=== PATIENT | male | born 1995 | race Two or more races ===

== ENCOUNTER 2023-05-16 18:16 | Emergency (ER) | payer SELFPAY ==
[~2023-05-16] VITALS: Ht 165.1 cm; Wt 70.1 kg
[2023-05-16 19:37] VITALS: BP 125/69; PULSE 100; RESP 16; TEMP 97.6; O2SAT 97
[2023-05-16] MEDS ORDERED: LIDO5PAD8 EX (21:08)
[2023-05-16] MEDS ORDERED: CYCL-839 PO (21:08)
[2023-05-16] MEDS ORDERED: IBUP1TAB5 PO (21:08)
[2023-05-16] MEDS ORDERED: KETOROLAC TROMETH 60MG/2ML VIAL IM ONE (21:15)
== END 2023-05-16 22:38 | disposition home or self-care (01) ==
LOC: ER 18:16
DX: S39.012A Strain of muscle, fascia and tendon of lower back, initial encounter (principal); Z79.899 Other long term (current) drug therapy; X50.1XXA Overexertion from prolonged static or awkward postures, initial encounter; Y93.89 Activity, other specified; Y92.89 Other specified places as the place of occurrence of the external cause; Y99.8 Other external cause status
CPT/HCPCS: 72100; 96372; 99283; J1885

== ENCOUNTER 2023-12-22 08:57 | Emergency (ER) | payer MEDICAID, OTHER ==
[~2023-12-22] VITALS: Ht 165.1 cm; Wt 69.2 kg
[~2023-12-22 08:57] MED LIST: CYCL-839 PO; IBUP1TAB5 PO; LIDO5PAD12 EX
[2023-12-22 09:35] VITALS: BP 132/68; PULSE 86; RESP 18; TEMP 98.6; O2SAT 98
[2023-12-22] MEDS: cefTRIAXone SOD 1,000 MG VL IM ONE (09:45)
[2023-12-22] MEDS ORDERED: LIDO2SOL26 MT (10:01)
[2023-12-22] MEDS ORDERED: PENI500T2 PO (10:01)
== END 2023-12-22 10:07 | disposition home or self-care (01) ==
LOC: ER 08:57
DX: J02.9 Acute pharyngitis, unspecified (principal); Z79.899 Other long term (current) drug therapy
CPT/HCPCS: 96372; 99283; J0696

== ENCOUNTER 2024-02-16 22:46 | Emergency (ER) | payer MEDICAID ==
[~2024-02-16] VITALS: Ht 165.1 cm; Wt 65.6 kg
[~2024-02-16 22:46] MED LIST changes: +LIDO2SOL26 MT; +PENI500T2 PO
[2024-02-16 22:49] VITALS: BP 113/69; PULSE 79; RESP 18; TEMP 98.2; O2SAT 94
[2024-02-16 23:37] LABS: Rapid Strep A Screen-Throat Negative
[2024-02-17] MEDS ORDERED: AUG875T PO (01:06)
[2024-02-17] MEDS: DexAMETHasone SOD PHOS 10MG/1ML VIAL INJ IM ONE (01:19)
== END 2024-02-17 01:27 | disposition home or self-care (01) ==
LOC: ER 22:46
DX: J02.9 Acute pharyngitis, unspecified (principal); Z79.899 Other long term (current) drug therapy
CPT/HCPCS: 87070; 87880; 96372; 99283; J1100

== ENCOUNTER 2024-05-07 21:13 | Emergency (ER) | payer MEDICAID ==
[~2024-05-07] VITALS: Ht 165.1 cm; Wt 70.9 kg
[~2024-05-07 21:13] MED LIST changes: +AUG875T PO
[2024-05-07 22:28] VITALS: BP 125/83; PULSE 84; RESP 18; TEMP 98.3; O2SAT 98
[2024-05-07] MEDS ORDERED: IBUP-1456 PO (22:54)
[2024-05-07] MEDS ORDERED: CYCL-837 PO (22:54)
--- NOTE | 2024-05-07 22:54 | ED.PDOC ---
Back pain HPI HPI Comments 29 YEAR OLD MALE PRESENTS TO ER WITH COMPLAINTS OF BACK PAIN X1 DAY. PATIENT REPORTS HE STARTED EXPERIENCING DIFFUSE LOWER LUMBAR BACK PAIN THIS EVENING AFTER HE PICKED UP HIS APPROXIMATELY 50 LB NIECE. HE RATES HIS CURRENT PAIN A 10/10 DIFFUSE TO LOWER LUMBAR SPINE WITHOUT RADIATION. DENIES USE OF MEDICATIO NS FOR CURRENT SYMPTOMS. PATIENT STATES HE HAS HAD SIMILAR SYMPTOMS IN THE PAST RELATED TO A "BACK STRAIN" AND REPORTS HIS PAIN IS WORSE WITH MOVEMENT AND BETTER WITH REST. DENIES FEVER, BODY ACHES, CHILLS, NAUSEA/VOMITING, NUMBNESS/TINGLING, SHORTNESS OF BREATH, CHEST PAIN, TRAUMA/FALLS, ABDOMINAL/PELVIC PAIN, CHANGES IN URINATION/BM OR ANY FURTHER SYMPTOMS/COMPLAINTS Chief Complaint: Back Pain Time Seen by MD: 21:38 Primary Care Provider: UNKNOWN Reviewed Notes: Nurses Notes, Medications, Allergies Allergies: Coded Allergies: NO KNOWN ALLERGIES (Unverified , 05/16/23) Home Meds Active Scripts Cyclobenzaprine Hcl (Cyclobenzaprine Hcl) 5 Mg Tab, 1 TAB PO QHSP PRN, #14 TAB 0 Refills Prov:KORINA MORILLO 05/07/24 Ibuprofen (Ibuprofen) 800 Mg Tab, 1 TAB PO TID PRN, #30 TAB 0 Refills Prov:KORINA MORILLO 05/07/24 Amoxicillin & Pot Clavulanate (AUGMENTIN TABLET) 875 Mg Tb, 875 MG PO BID for 7 Days, #14 TAB Prov:STEPHENIE GILLIS 02/17/24 Lidocaine HCl (Mouth-Throat) (Lidocaine HCl Viscous) 2 % Kaitlynn, 5 ML MT TID, #100 ML Prov:PAULINO VILLASEÑOR 12/22/23 Penicillin V Potassium (Veetids) 500 Mg Tab, 1 TAB PO QID, #28 TAB Prov:PAULINO VILLASEÑOR 12/22/23 Cyclobenzaprine Hcl (Cyclobenzaprine Hcl) 10 Mg Tab, 10 MG PO TID, #12 TAB 0 Refills Prov:LEONIDAS FISH [facility] 05/16/23 Ibuprofen Micronized (Ibuprofen) 600 Mg Tab, 600 MG PO Q8HPRN PRN, #30 TAB 0 Refills Prov:LEONIDAS FISH [facility] 05/16/23 Lidocaine (Lidocaine Patch 5%) 5 % Pad, 1 APPLIC EX DAILY PRN, #30 PATCH 0 Refills Prov:LEONIDAS FISH [employer] 05/16/23 Information Source: Patient Mode of Arrival: Wheelchair Past Medical History PAST MEDICAL HISTORY: Denies Surgical History: Denies all surgeries Family History Family History: Unknown Social History Smoker: Non-Smoker Alcohol: Denies ETOH Use Drugs: Denies Drug Use Lives In: Home Constitutional: denies: chills, diaphoresis, fatigue, fever, malaise, sweats, weakness, others EENTM: denies: blurred vision, double vision, ear bleeding, ear discharge, ear drainage, ear pain, ear ringing, eye pain, eye redness, hearing loss, mouth pain, mouth swelling, nasal discharge, nose bleeding, nose congestion, nose pain, photophobia, tearing, throat pain, throat swelling, voice changes, others Respiratory: denies: cough, hemoptysis, orthopnea, SOB at rest, shortness of breath, SOB with excertion, stridor, wheezing, others Cardiovascular: denies: chest pain, dizzy spells, diaphoresis, Dyspnea on exertion, edema, irregular heart beat, left arm pain, lightheadedness, palpitations, PND, syncope, others Gastrointestinal: denies: abdomen distended, abdominal pain, blood streaked bowels, constipated, diarrhea, dysphagia, difficulty swallowing, hematemesis, melena, nausea, poor appetite, poor fluid intake, rectal bleeding, rectal pain, vomiting, others Genitourinary: denies: burning, dysuria, flank pain, frequency, hematuria, incontinence, penile discharge, penile sore, pain, testicle pain, testicle swelling, urgency, others Neurological: denies: dizziness, fainting, headache, left sided numbness, left sided weakness, numbness, paresthesia, pre-existing deficit, right sided numbness, right sided weakness, seizure, speech problems, tingling, tremors, weakness, others Musculoskeletal: reports: others ( STATED IN HPI) Integumetry: denies: bruises, change in color, change in hair/nails, dryness, laceration, lesions, lumps, rash, wounds, others Allergic/Immunocompromised: denies: Difficulty Healing, Frequent Infections, Hives, Itching, others Hematologic/Lymphatic: denies: anemia, blood clots, easy bleeding, easy bruising, swollen glands, others Endocrine: denies: excessive hunger, excessive sweating, excessive thirst, excessive urination, flushing, intolerance to cold, intolerance to heat, unexplained weight gain, unexplained weight loss, others Psychiatric: denies: anxiety, bipolar disorder, depression, hopeless, panic disorder, schizophrenia, sleepless, suicidal, others Physical Exam General Appearance: No Apparent Distress HEENT: PERRL/EOMI Neck: Full Range of Motion, Non-Tender, Normal Respiratory: Chest Non-Tender, Lungs Clear, No Accessory Muscle Use, No Respiratory Distress, Normal Breath Sounds Cardiovascular: No Murmur, No Gallop, Regular Rate/Rhythm Breast Exam: Deferred Gastrointestinal: No Organomegaly, Non Tender, No Pulsatile Mass, Normal Bowel Sounds, Soft Genitalia: Deferred Pelvic: Deferred Rectal: Deferred Extremities: No calf tenderness, Normal capillary refill, Normal range of motion Musculoskeletal : Extremity Location: Back (Slight TTP diffuse to bilateral lower lumbar paraspinals noted. No skin changes appreciated. Gait slowed due to pain localized to bilateral lower lumbar paraspinals) Neurologic: Alert, No Motor Deficits, Normal Affect, Normal Mood, No Sensory De ficits Cerebellar Function: Normal Reflexes: Normal Skin: Dry, Normal Color, Warm Peripheral Pulses: 2+ femoral (R), 2+ femoral (L), 2+ dorsalis pedis (R), 2+ dorsalis pedis (L), 2+ Radial (R), 2+ Radial (L), 2+ Brachial (R), 2+ Brachial (L) Lymphatic: No Adenopathy Was a procedure done? Was a procedure done?: No Sedation Sedation?: No Back Pain Differential Dx Differential Diagnosis: AAA, Fracture, Urinary Tract Infection, Urolithiasis X-Ray, Labs, Meds, VS Vital Signs Date Time Temp Pulse Resp B/P (MAP) Pulse Ox O2 Delivery O2 Flow Rate FiO2 05/07/24 22:28 98.3 84 18 125/83 (97) 98 98.3 05/07/24 22:28 84 18 98 Room Air 05/07/24 21:35 98.3 84 18 125/83 (97) 98 Toradol 60 mg IM ordered Patient neurovascularly intact and reported improvement in symptoms prior to discharge Advised on rest/no strenuous activity Advised to follow up with PCP in 1-2 days Patient verbalized understanding and agreeable with current plan of care Advised to return to ER immediately if symptoms worsen Time of 1ST Reevaluation: 22:24 Reevaluation 1ST: N/A Patient Education/Counseling: Diagnosis, Treatment, Prognosis, Need For Follow Up Family Education/Counseling: No Family Present Departure 1 Departure Time of Disposition: 22:52 Impression: Primary Impression: Lumbar strain Qualified Codes: S39.012A - Strain of muscle, fascia and tendon of lower back, initial encounter Disposition: HOME / SELF CARE / HOMELESS Condition: Stable e-Prescriptions Cyclobenzaprine Hcl (Cyclobenzaprine Hcl) 5 Mg Tab 1 TAB PO QHSP PRN, #14 TAB 0 Refills Prov: KORINA MORILLO 05/07/24 Ibuprofen (Ibuprofen) 800 Mg Tab 1 TAB PO TID PRN, #30 TAB 0 Refills Prov: KORINA MORILLO 05/07/24 Discharged With: Friend Critical Care Note Critical Care Time?: No Stability Stability form required: No Heart Score Heart Score: Heart Score Response (Comments) Value History N/A 0 EKG N/A 0 Age N/A 0 Risk Factors N/A 0 Troponin N/A 0 Total 0 KORINA MORILLO May 07, 2024 22:54
[2024-05-07] MEDS: KETOROLAC TROMETH 60MG/2ML VIAL IM ONE (23:14)
== END 2024-05-07 23:52 | disposition home or self-care (01) ==
LOC: ER 21:13
DX: S39.012A Strain of muscle, fascia and tendon of lower back, initial encounter (principal); Z79.899 Other long term (current) drug therapy; X58.XXXA Exposure to other specified factors, initial encounter; Y93.89 Activity, other specified; Y92.89 Other specified places as the place of occurrence of the external cause; Y99.8 Other external cause status
CPT/HCPCS: 96372; 99283; J1885

== ENCOUNTER 2024-05-11 18:40 | Emergency (ER) | payer MEDICAID ==
[~2024-05-11] VITALS: Ht 165.1 cm; Wt 68.7 kg
[~2024-05-11 18:40] MED LIST changes: +CYCL-837 PO; +IBUP-1456 PO
--- NOTE | 2024-05-11 21:50 | DVH ---
CLINICAL INDICATION: injury/pain TECHNIQUE: 3 radiographic views of the lumbar spine were obtained. Comparison: XY LUMBAR SPINE 3 VIEW on DOS: 05/16/23 FINDINGS/IMPRESSION: There is no evidence of acute fracture or dislocation. The visualized joint space is well maintained. Straightening of the normal lumbar lordotic curve is noted this is unchanged from May 16, 2023 There is no radiopaque foreign body.
[2024-05-11] MEDS: KETOROLAC TROMETH 60MG/2ML VIAL IM ONE (22:00)
[2024-05-11] MEDS: DexAMETHasone SOD PHOS 10MG/1ML VIAL INJ IM ONE (22:01)
[2024-05-11 22:06] VITALS: BP 117/70; PULSE 73; RESP 17; TEMP 98; O2SAT 98
--- NOTE | 2024-05-11 22:06 | ED.PDOC ---
Back pain HPI HPI Comments This is a 29-year-old male presents to the ED chief complaint low back pain. Here 2 days ago was prescribed muscle relaxer and ibuprofen no imaging was done he states pain continues medications. He states he injured it a several days ago twisted his back ever since he is having bilateral low back pain left greater than right with radiation into his left buttock 8/10 on pain scale sharp shooting type pain.. He denies any radiculopathy, Numbness or weakness, Saddle anesthesia. loss of bladder control. Chief Complaint: Back Pain Time Seen by MD: 18:49 Primary Care Provider: UNKNOWN Reviewed Notes: Nurses Notes, Medications, Allergies Allergies: Coded Allergies: NO KNOWN ALLERGIES (Unverified , 05/16/23) Home Meds Active Scripts Methylprednisolone (Medrol Dosepak) 4 Mg Victor Manuel, 4 MG PO UD for 6 Days, #21 TAB UAD Prov:STEPHENIE GILLIS [employer] 05/11/24 Cyclobenzaprine Hcl (Cyclobenzaprine Hcl) 5 Mg Tab, 1 TAB PO QHSP PRN, #14 TAB 0 Refills Prov:KORINA MORILLO 05/07/24 Ibuprofen (Ibuprofen) 800 Mg Tab, 1 TAB PO TID PRN, #30 TAB 0 Refills Prov:KORINA MORILLO 05/07/24 Amoxicillin & Pot Clavulanate (AUGMENTIN TABLET) 875 Mg Tb, 875 MG PO BID for 7 Days, #14 TAB Prov:STEPHENIE GILLIS [facility] 02/17/24 Lidocaine HCl (Mouth-Throat) (Lidocaine HCl Viscous) 2 % Kaitlynn, 5 ML MT TID, #100 ML Prov:PAULINO VILLASEÑOR 12/22/23 Penicillin V Potassium (Veetids) 500 Mg Tab, 1 TAB PO QID, #28 TAB Prov:PAULINO VILLASEÑOR 12/22/23 Cyclobenzaprine Hcl (Cyclobenzaprine Hcl) 10 Mg Tab, 10 MG PO TID, #12 TAB 0 Refills Prov:LEONIDAS FISH [facility] 05/16/23 Ibuprofen Micronized (Ibuprofen) 600 Mg Tab, 600 MG PO Q8HPRN PRN, #30 TAB 0 Refills Prov:LEONIDAS FISH [facility] 05/16/23 Lidocaine (Lidocaine Patch 5%) 5 % Pad, 1 APPLIC EX DAILY PRN, #30 PATCH 0 Refills Prov:LEONIDAS FISH [facility] 05/16/23 Information Source: Patient Mode of Arrival: Wheelchair Past Medical History PAST MEDICAL HISTORY: Denies Surgical History: Denies all surgeries Family History Family History: Reviewed,noncontributory to illness, Unknown Social History Smoker: Non-Smoker Alcohol: Denies ETOH Use Drugs: Denies Drug Use Lives In: Home Constitutional: denies: chills, diaphoresis, fatigue, fever, malaise, sweats, weakness, others EENTM: denies: blurred vision, double vision, ear bleeding, ear discharge, ear drainage, ear pain, ear ringing, eye pain, eye redness, hearing loss, mouth pain, mouth swelling, nasal discharge, nose bleeding, nose congestion, nose pain, photophobia, tearing, throat pain, throat swelling, voice changes, others Respiratory: denies: cough, hemoptysis, orthopnea, SOB at rest, shortness of breath, SOB with excertion, stridor, wheezing, others Cardiovascular: denies: chest pain, dizzy spells, diaphoresis, Dyspnea on exertion, edema, irregular heart beat, left arm pain, lightheadedness, palpitations, PND, syncope, others Gastrointestinal: denies: abdomen distended, abdominal pain, blood streaked bowels, constipated, diarrhea, dysphagia, difficulty swallowing, hematemesis, melena, nausea, poor appetite, poor fluid intake, rectal bleeding, rectal pain, vomiting, others Genitourinary: denies: burning, dysuria, flank pain, frequency, hematuria, incontinence, penile discharge, penile sore, pain, testicle pain, testicle swelling, urgency, others Neurological: denies: dizziness, fainting, headache, left sided numbness, left sided weakness, numbness, paresthesia, pre-existing deficit, right sided numbness, right sided weakness, seizure, speech problems, tingling, tremors, weakness, others Musculoskeletal: reports: back pain; denies: gout, joint pain, joint swelling, muscle pain, muscle stiffness, neck pain, others Integumetry: denies: bruises, change in color, change in hair/nails, dryness, laceration, lesions, lumps, rash, wounds, others Allergic/Immunocompromised: denies: Difficulty Healing, Frequent Infections, Hives, Itching, others Hematologic/Lymphatic: denies: anemia, blood clots, easy bleeding, easy bruising, swollen glands, others Endocrine: denies: excessive hunger, excessive sweating, excessive thirst, excessive urination, flushing, intolerance to cold, intolerance to heat, unexp lained weight gain, unexplained weight loss, others Psychiatric: denies: anxiety, bipolar disorder, depression, hopeless, panic disorder, schizophrenia, sleepless, suicidal, others Physical Exam General Appearance: No Apparent Distress, Normal HEENT: Pharynx Normal Neck: Full Range of Motion, Non-Tender Respiratory: Lungs Clear, No Respiratory Distress, Normal Breath Sounds Cardiovascular: No Edema, No JVD, No Murmur, No Gallop, Normal Peripheral Pulses, Regular Rate/Rhythm Breast Exam: Deferred Gastrointestinal: No Organomegaly, Non Tender, No Pulsatile Mass, Normal Bowel Sounds, Soft Genitalia: Deferred Pelvic: Deferred Rectal: Deferred Extremities: Normal capillary refill, Normal inspection, Normal range of motion, Non-tender, No pedal edema Musculoskeletal : Location: Bilateral Extremity Location: Back (Moderate tenderness noted under lumbar back musculature. Lumbar spine without crepitus, step-offs, tenderness, lesions, abrasions, ecchymosis or lacerations. Negative straight leg raise bilateral strength sensory motion intact positive pedal pulses) Apperance: Normal Neurologic: Alert, proteomics scientist II-XII nml as Tested, No Motor Deficits, Normal Affect, Normal Mood, No Sensory Deficits Cerebellar Function: Normal Reflexes: Normal Skin: Dry, Normal Color, Warm Lymphatic: No Adenopathy Was a procedure done? Was a procedure done?: No Back Pain Differential Dx Differential Diagnosis: Fracture, Musculoskeletal Pain X-Ray, Labs, Meds, VS Vital Signs Date Time Temp Pulse Resp B/P (MAP) Pulse Ox O2 Delivery O2 Flow Rate FiO2 05/11/24 22:06 73 17 98 Room Air 05/11/24 22:06 98.0 73 17 117/70 (86) 98 98.0 05/11/24 20:03 98.0 88 18 100/61 (74) 98 Current Medications Medications (Trade) Dose Ordered Sig/Luis Route Start Time Stop Time Status Last Admin Ketorolac Tromethamine (Toradol Injection) 60 mg ONCE ONCE IM 05/11/24 21:15 05/11/24 21:16 DC 05/11/24 22:00 Dexamethasone Sodium Phosphate (Decadron Injection) 10 mg ONCE ONCE IM 05/11/24 21:15 05/11/24 21:16 DC 05/11/24 22:01 X-Ray, Labs, Meds, VS Comment Lumbar spine x-ray negative for acute fractures or osseous lesions. Lumbar muscle strain. And was given Toradol 60 mg IM reports improvement in pain improvement in function requesting discharge at this time. Follow up with his PCP in 2-3 days consider further imaging such as MRI for continued pain consider physical therapy referral. Script Medrol Dosepak. Muscle relaxer as prescribed. Ice and heat and [id number] rubs discussed. ER return precautions given for saddle anesthesia numbness or weakness or any concerning symptoms patient agrees with discharge plan of care. Time of 1ST Reevaluation: 22:06 Reevaluation 1ST: Improved Patient Education/Counseling: Diagnosis, Treatment, Prognosis, Need For Follow Up Family Education/Counseling: No Family Present Departure 1 Departure Time of Disposition: 22:06 Impression: Primary Impression: Lumbar strain Qualified Codes: S39.012A - Strain of muscle, fascia and tendon of lower back, initial encounter Disposition: HOME / SELF CARE / HOMELESS Condition: Stable e-Prescriptions Methylprednisolone (Medrol Dosepak) 4 Mg Victo Rmanuel 4 MG PO UD for 6 Days, #21 TAB UAD Prov: STEPHENIE GILLIS 05/11/24 Discharged With: Relative (Father) Critical Care Note Critical Care Time?: No Stability Stability form required: No STEPHENIE GILLIS May 11, 2024 22:06
[2024-05-11] MEDS ORDERED: METH4PAK PO (22:48)
== END 2024-05-11 22:24 | disposition home or self-care (01) ==
LOC: ER 18:40
DX: S39.012A Strain of muscle, fascia and tendon of lower back, initial encounter (principal); Z79.899 Other long term (current) drug therapy; X58.XXXA Exposure to other specified factors, initial encounter; Y93.89 Activity, other specified; Y92.89 Other specified places as the place of occurrence of the external cause; Y99.8 Other external cause status
CPT/HCPCS: 72100; 96372; 99284; J1100; J1885

== ENCOUNTER 2024-11-11 15:28 | Emergency (ER) | payer MEDICAID ==
--- NOTE | 2024-11-11 15:40 | ED.PDOC ---
Back pain HPI HPI Comments 29-year-old male with PMHx Chronic Back Pain presents with a chief complaint of back pain x onset yesterday. Patient states that yesterday he was lifting an approximately 30lb box at home and believes that he lifted wrong. Patient has tenderness to the left para lumbar region. Patient is able to ambulate, and bend over, but states that it is painful to twist. Chief Complaint: Back Pain Time Seen by MD: 15:34 Primary Care Provider: UNKNOWN Reviewed Notes: Medications, Allergies Allergies: Coded Allergies: NO KNOWN ALLERGIES (Unverified , 05/16/23) Home Meds Active Scripts Cyclobenzaprine Hcl (Cyclobenzaprine Hcl) 5 Mg Tab, 1 TAB PO QHSP PRN, #14 TAB 0 Refills Prov:KORINA MORILLO 05/07/24 Ibuprofen (Ibuprofen) 800 Mg Tab, 1 TAB PO TID PRN, #30 TAB 0 Refills Prov:KORINA MORILLO 05/07/24 Amoxicillin & Pot Clavulanate (AUGMENTIN TABLET) 875 Mg Tb, 875 MG PO BID for 7 Days, #14 TAB Prov:STEPHENIE GILLIS [facility] 02/17/24 Lidocaine HCl (Mouth-Throat) (Lidocaine HCl Viscous) 2 % Kaitlynn, 5 ML MT TID, #100 ML Prov:APULINO VILLASEÑOR 12/22/23 Penicillin V Potassium (Veetids) 500 Mg Tab, 1 TAB PO QID, #28 TAB Prov:PAULINO VILLASEÑOR 12/22/23 Cyclobenzaprine Hcl (Cyclobenzaprine Hcl) 10 Mg Tab, 10 MG PO TID, #12 TAB 0 Refills Prov:LEONIDAS FISH [facility] 05/16/23 Ibuprofen Micronized (Ibuprofen) 600 Mg Tab, 600 MG PO Q8HPRN PRN, #30 TAB 0 Refills Prov:LEONIDAS FISH [facility] 05/16/23 Lidocaine (Lidocaine Patch 5%) 5 % Pad, 1 APPLIC EX DAILY PRN, #30 PATCH 0 Refills Prov:LEONIDAS FISH [facility] 05/16/23 Information Source: Patient Mode of Arrival: Ambulatory Timing: Days Duration: Intermittent Location of Back pain: (L) Lumbar Severity: Moderate Prehospital treatment: None Quality: Sharp Onset: Lifing Circumstance: Other History of: Chronic Back Pain Modifying Factors: Twisting Past Medical History Past Medical History (Other): CHRONIC BACK PAIN Surgical History: Denies all surgeries Family History Family History: Reviewed,noncontributory to illness Social History Smoker: Non-Smoker Alcohol: Denies ETOH Use Drugs: Denies Drug Use Lives In: Home Constitutional: denies: chills, diaphoresis, fatigue, fever, malaise, sweats, weakness, others EENTM: denies: blurred vision, double vision, ear bleeding, ear discharge, ear drainage, ear pain, ear ringing, eye pain, eye redness, hearing loss, mouth pain, mouth swelling, nasal discharge, nose bleeding, nose congestion, nose pain, photophobia, tearing, throat pain, throat swelling, voice changes, others Respiratory: denies: cough, hemoptysis, orthopnea, SOB at rest, shortness of breath, SOB with excertion, stridor, wheezing, others Cardiovascular: denies: chest pain, dizzy spells, diaphoresis, Dyspnea on exertion, edema, irregular heart beat, left arm pain, lightheadedness, palpitations, PND, syncope, others Gastrointestinal: denies: abdomen distended, abdominal pain, blood streaked bowels, constipated, diarrhea, dysphagia, difficulty swallowing, hematemesis, melena, nausea, poor appetite, poor fluid intake, rectal bleeding, rectal pain, vomiting, others Genitourinary: denies: burning, dysuria, flank pain, frequency, hematuria, incontinence, penile discharge, penile sore, pain, testicle pain, testicle swelling, urgency, others Neurological: denies: dizziness, fainting, headache, left sided numbness, left sided weakness, numbness, paresthesia, pre-existing deficit, right sided numbness, right sided weakness, seizure, speech problems, tingling, tremors, weakness, others Musculoskeletal: reports: back pain; denies: gout, joint pain, joint swelling, muscle pain, muscle stiffness, neck pain, others Integumetry: denies: bruises, change in color, change in hair/nails, dryness, laceration, lesions, lumps, rash, wounds, others Allergic/Immunocompromised: denies: Difficulty Healing, Frequent Infections, Hives, Itching, others Hematologic/Lymphatic: denies: anemia, blood clots, easy bleeding, easy bruising, swollen glands, others Endocrine: denies: excessive hunger, excessive sweating, excessive thirst, excessive urination, flushing, intolerance to cold, intolerance to heat, unexplained weight gain, unexplained weight loss, others Psychiatric: denies: anxiety, bipolar disorder, depression, hopeless, panic disorder, schizophrenia, sleepless, suicidal, others All Other Systems: Reviewed and Negative Physical Exam General Appearance: No Apparent Distress, Normal HEENT: Normal ENT Inspection, Pharynx Normal, TMs Normal Neck: Full Range of Motion, Non-Tender, Normal, Normal Inspection Respiratory: Chest Non-Tender, Lungs Clear, No Accessory Muscle Use, No Respiratory Distress, Normal Breath Sounds Cardiovascular: No Edema, No JVD, No Murmur, No Gallop, Normal Peripheral Pulses, Regular Rate/Rhythm Breast Exam: Deferred Gastrointestinal: No Organomegaly, Non Tender, No Pulsatile Mass, Normal Bowel Sounds, Soft Genitalia: Deferred Pelvic: Deferred Rectal: Deferred Extremities: No calf tenderness, Normal capillary refill, Normal inspection, Normal range of motion, Non-tender, No pedal edema Musculoskeletal : Location: Left Extremity Location: Back (PARA LUMBAR REGION TENDERNESS) Apperance: Normal, Tenderness: Moderate Neurologic: Alert, firmware software verification engineer II-XII nml as Tested, No Motor Deficits, Normal Affect, Normal Mood, No Sensory Deficits Cerebellar Function: Normal Reflexes: Normal Skin: Dry, Normal Color, Warm Lymphatic: No Adenopathy Was a procedure done? Was a procedure done?: No Back Pain Differential Dx Differential Diagnosis: Fracture, Musculoskeletal Pain X-Ray, Labs, Meds, VS Vital Signs Date Time Temp Pulse Resp B/P (MAP) Pulse Ox O2 Delivery O2 Flow Rate FiO2 11/11/24 17:38 98.0 81 17 114/70 (85) 96 98.0 11/11/24 17:38 81 17 96 Room Air 11/11/24 15:35 98.5 86 17 127/85 (99) 96 98.5 Current Medications Medications (Trade) Dose Ordered Sig/Luis Route Start Time Stop Time Status Last Admin Ketorolac Tromethamine (Toradol Injection) 15 mg ONCE ONCE IM 11/11/24 16:30 11/11/24 17:24 DC 11/11/24 17:37 Time of 1ST Reevaluation: 16:04 Reevaluation 1ST: Unchanged Time of 2ND Reevaluation: 18:02 Reevaluation 2ND: Improved Patient Education/Counseling: Diagnosis, Treatment, Prognosis, Need For Follow Up Family Education/Counseling: No Family Present SEPSIS Sepsis Screen Vital Signs Date Time Temp Pulse Resp B/P (MAP) Pulse Ox O2 Delivery O2 Flow Rate FiO2 11/11/24 17:38 98.0 81 17 114/70 (85) 96 98.0 11/11/24 17:38 81 17 96 Room Air 11/11/24 15:35 98.5 86 17 127/85 (99) 96 98.5 Medications Medications Dose Ordered Sig/Luis Route Start Time Stop Time Status Last Admin Dose Admin Ketorolac Tromethamine 15 mg ONCE ONCE IM 11/11/24 16:30 11/11/24 17:24 DC 11/11/24 17:37 Departure 1 Departure Time of Disposition: 18:02 Impression: Primary Impression: Low back strain Qualified Codes: S39.012A - Strain of muscle, fascia and tendon of lower back, initial encounter Disposition: HOME / SELF CARE / HOMELESS Condition: Good e-Prescriptions Cyclobenzaprine Hcl (Cyclobenzaprine Hcl) 10 Mg Tab 10 MG PO Q8HP PRN for 5 Days, #15 TAB Prov: MAXIMUS FRAUSTO MD 11/11/24 Ibuprofen Micronized (MOTRIN TABLET) 600 Mg Tb 600 MG PO TID PRN, #40 TAB *Black box warning-NSAIDS can increase risk of DC & hypertension, GI irritation, ulceration, bleed, perferation. Do not use post cardiac surgery. Use short duration/lowest effective dose. Prov: MAXIMUS FRAUSTO MD 11/11/24 Discharged With: Self Critical Care Note Critical Care Time?: No Stability Stability form required: No Heart Score Heart Score: Heart Score Response (Comments) Value History N/A 0 EKG N/A 0 Age N/A 0 Risk Factors N/A 0 Troponin N/A 0 Total 0 I personally scribed for MAXIMUS FRAUSTO MD ([email or web address]) on 11/11/24 at 15:40. Electronically submitted by Kevin Newsome ([email or web address]). MAXIMUS FRAUSTO MD Nov 11, 2024 15:40
[2024-11-11] MEDS: KETOROLAC TROMETH 30 MG/ML 1ML VIAL IM ONE (17:37)
[2024-11-11 17:38] VITALS: BP 114/70; PULSE 81; RESP 17; TEMP 98; O2SAT 96
[2024-11-11] MEDS ORDERED: CYCL-839 PO (18:03)
[2024-11-11] MEDS ORDERED: IBU600T PO (18:03)
== END 2024-11-11 18:18 | disposition home or self-care (01) ==
LOC: ER 15:28
DX: S39.012A Strain of muscle, fascia and tendon of lower back, initial encounter (principal); X50.0XXA Overexertion from strenuous movement or load, initial encounter; Y93.89 Activity, other specified; Y92.89 Other specified places as the place of occurrence of the external cause; Y99.8 Other external cause status
CPT/HCPCS: 96372; 99283; J1885